=== PATIENT | female | born 1970 | race African-American/Black ===

== ENCOUNTER 2017-02-16 14:01 | Observation (INO) | payer MEDICAID ==
[~2017-02-16] VITALS: Ht 175.3 cm; Wt 100.0 kg
[~2017-02-16 14:01] MED LIST: IBUP-232 PO; LEVO100T5 PO; ZETI10TA5 PO
--- NOTE | 2017-02-16 14:10 | PD ---
Physical Exam Date Seen by Provider: Feb 16, 2017 Time Seen by Provider: 14:08 Narrative 46 yo female that presents to the ED for pressure on the left neck and chest with SOB, palpitations as well. Never has had this before. Going on since yesterday. Comes and goes. No cardiac history. Pain is 10/10. No BM or urinary symptoms. No radiation of the pain. No travel or injury. No ski topper. Vitals sign stable. Patient awaiting bed placement. [facility] Medical Record Reviewed: Yes Supervised Visit with AMY: Mario Hernandez Feb 16, 2017 14:10
[2017-02-16 14:34] LABS: AUTOMATED NEUTROPHIL # 12.2 TH/MM3 (1.8-7.7); BASOPHIL # 0.1 TH/MM3 (0-0.2); BASOPHIL % 0.4 % (0.0-2.0); EOSINOPHIL # 0.1 TH/MM3 (0-0.4); EOSINOPHIL % 0.5 % (0.0-4.0); HEMATOCRIT 40.2 % (35.0-46.0); HEMO FLAGS DIFF FINAL; LYMPH % 17.8 % (9.0-44.0); LYMPHOCYTE # 2.8 TH/MM3 (1.0-4.8); MEAN CELL VOLUME 88.9 FL (80.0-100.0); MEAN CORPUSCULAR HGB CONC 33.8 % (32.0-36.0); MONO % 4.1 % (0.0-8.0); NEUT % 77.2 % (16.0-70.0); PLATELET COUNT 295 TH/MM3 (150-450); RED BLOOD COUNT 4.52 MIL/MM3 (4.00-5.30); RED CELL DISTRIBUTION WIDTH 12.8 % (11.6-17.2); WHITE BLOOD COUNT 15.8 TH/MM3 (4.0-11.0)
[2017-02-16 14:42] LABS: APTT (PATIENT) 26.9 SEC (24.3-30.1); INTERNATIONAL NORMALIZED RATIO 0.9 RATIO; PROTHROMBIN TIME - PATIENT 10.3 SEC (9.8-11.6)
[2017-02-16 15:14] LABS: ANION GAP 9 MEQ/L (5-15); BICARBONATE 27.5 MEQ/L (21.0-32.0); BLOOD UREA NITROGEN 7 MG/DL (7-18); CHLORIDE 105 MEQ/L (98-107); GLOMERULAR FILTRATION RATE 91 ML/MIN (>89); MAGNESIUM 2.2 MG/DL (1.5-2.5); POTASSIUM 3.4 MEQ/L (3.5-5.1); SODIUM (NA) 141 MEQ/L (136-145)
--- NOTE | 2017-02-16 15:14 | PD ---
HPI Chief Complaint: Chest Pain Time Seen by Provider: 15:13 Travel History International Travel<30 days: No Contact w/Intl Traveler<30days: No Traveled to known affect area: No History of Present Illness HPI 46-year-old female with PMH of HLD, hypothyroid presents to the ED for evaluation of abrupt onset chest pain, palpitations and shortness of breath at ~ noon today. Onset at rest, described as intermittent. States pain radiates into the left neck and left arm. Patient denies accompanying diaphoresis, nausea or vomiting. States she is unsure how long the episode lasted. She denies headache, dizziness, cough, abdominal pain, dysuria, back pain, edema of the lower extremities. Patient endorses a 20+ year smoking history, quit smoking 2 years ago. Endorses family history, both parents with MIs. PFSH Past Medical History Cardiovascular Problems: Yes (ENLARGED HEART) Diminished Hearing: No Seizures: Yes (ABSENT - NON COMPLANT WITH HER TOPAMAX X 2 MONTHS ) : 4 Para: 2 Ectopic : Yes Tubal Ligation: Yes Social History Alcohol Use: No Tobacco Use: No Substance Use: No Allergies-Medications (Allergen,Severity, Reaction): Coded Allergies: No Known Allergies (Verified , 06/06/15) Reported Meds & Prescriptions Reported Meds & Active Scripts Active Ibuprofen 600 Mg Tab 600 Mg PO TID PRN Reported Levothyroxine (Levothyroxine Sodium) 100 Mcg Tab 100 Mcg PO DAILY Zetia (Ezetimibe) 10 Mg Tab 10 Mg PO DAILY Review of Systems Except as stated in HPI: all other systems reviewed are Neg Physical Exam Narrative GENERAL: Well-nourished, well-developed obese black female in no acute distress. SKIN: Focused skin assessment warm/dry. HEAD: Normocephalic. EYES: No scleral icterus. No injection or drainage. NECK: Supple, trachea midline. No JVD or lymphadenopathy. CARDIOVASCULAR: Regular rate and rhythm without murmurs, gallops, or rubs. RESPIRATORY: Breath sounds clear and equal bilaterally. No accessory muscle use. GASTROINTESTINAL: Abdomen soft, non-tender, nondistended. Active bowel sounds MUSCULOSKELETAL: No cyanosis, or edema. BACK: Nontender without obvious deformity. No CVA tenderness. Data Data Last Documented VS Vital Signs Date Time Temp Pulse Resp B/P Pulse Ox O2 Delivery O2 Flow Rate FiO2 02/16/17 15:42 74 20 112/56 99 Nasal Cannula 2 Orders Electrocardiogram (02/16/17 ) Electrocardiogram (02/16/17 14:10) Complete Blood Count With Diff (02/16/17 14:10) Basic Metabolic Panel (Bmp) (02/16/17 14:10) Ckmb (Isoenzyme) Profile (02/16/17 14:10) Troponin I (02/16/17 14:10) Magnesium (Mg) (02/16/17 14:10) Prothrombin Time / Inr (Pt) (02/16/17 14:22) Act Partial Throm Time (Ptt) (02/16/17 14:22) Chest, Single Ap (02/16/17 15:09) Ecg Monitoring (02/16/17 15:09) Bilateral Bp Monitoring (02/16/17 15:09) Iv Access Insert/Monitor (02/16/17 15:09) Oximetry (02/16/17 15:09) Urinalysis - C+S If Indicated (02/16/17 15:43) Admit Order (Ed Use Only) (02/16/17 17:28) Place In Observation (02/16/17 17:29) Activity Bed Rest With Brp (02/16/17 17:29) Vital Signs (Adult) Q4H (02/16/17 17:29) Cardiac Rhythm .As Directed (02/16/17 17:29) Notify Dr: Other .PRN (02/16/17 17:29) Notify Dr. Parameters (02/16/17 17:29) Resp Oxygen Nasal Cannula (02/16/17 ) Diet Heart Healthy (02/16/17 Dinner) Ckmb (Isoenzyme) Profile (02/16/17 17:29) Ckmb (Isoenzyme) Profile (02/16/17 20:29) Troponin I (02/16/17 17:29) Troponin I (02/16/17 20:29) Electrocardiogram (02/16/17 17:29) Electrocardiogram (02/16/17 20:29) ^ Obtain (02/16/17 17:29) Sodium Chloride 0.9% Flush (Ns Flush) (02/16/17 17:30) Sodium Chloride 0.9% Flush (Ns Flush) (02/16/17 21:00) Program Admin / Telemetry YONG.Q8H (02/16/17 17:29) Labs Laboratory Tests Test 02/16/17 02/16/17 14:15 16:50 White Blood Count 15.8 TH/MM3 Red Blood Count 4.52 MIL/MM3 Hemoglobin 13.6 GM/DL Hematocrit 40.2 % Mean Corpuscular Volume 88.9 FL Mean Corpuscular Hemoglobin 30.0 PG Mean Corpuscular Hemoglobin 33.8 % Concent Red Cell Distribution Width 12.8 % Platelet Count 295 TH/MM3 Mean Platelet Volume 9.0 FL Neutrophils (%) (Auto) 77.2 % Lymphocytes (%) (Auto) 17.8 % Monocytes (%) (Auto) 4.1 % Eosinophils (%) (Auto) 0.5 % Basophils (%) (Auto) 0.4 % Neutrophils # (Auto) 12.2 TH/MM3 Lymphocytes # (Auto) 2.8 TH/MM3 Monocytes # (Auto) 0.7 TH/MM3 Eosinophils # (Auto) 0.1 TH/MM3 Basophils # (Auto) 0.1 TH/MM3 CBC Comment DIFF FINAL Differential Comment Prothrombin Time 10.3 SEC Prothromb Time International 0.9 RATIO Ratio Activated Partial 26.9 SEC Thromboplast Time Sodium Level 141 MEQ/L Potassium Level 3.4 MEQ/L Chloride Level 105 MEQ/L Carbon Dioxide Level 27.5 MEQ/L Anion Gap 9 MEQ/L Blood Urea Nitrogen 7 MG/DL Creatinine 0.82 MG/DL Estimat Glomerular Filtration 91 ML/MIN Rate Random Glucose 137 MG/DL Calcium Level 9.0 MG/DL Magnesium Level 2.2 MG/DL Total Creatine Kinase 49 U/L Troponin I LESS THAN 0.02 NG/ML Urine Color YELLOW Urine Turbidity HAZY Urine pH 6.5 Urine Specific [place] 1.015 Urine Protein NEG mg/dL Urine Glucose (UA) NEG mg/dL Urine Ketones NEG mg/dL Urine Occult Blood NEG Urine Nitrite NEG Urine Bilirubin NEG Urine Urobilinogen LESS THAN 2.0 MG/DL Urine Leukocyte Esterase TRACE Urine WBC 1 /hpf Urine Squamous Epithelial 1 /hpf Cells Urine Amorphous Sediment RARE Urine Bacteria RARE /hpf Microscopic Urinalysis Comment CULT NOT INDICATED MDM Medical Decision Making Medical Screen Exam Complete: Yes Emergency Medical Condition: Yes Medical Record Reviewed: Yes Interpretation(s) EKG rate 91, sinus rhythm with PVCs. OR interval 155, QRS 95, QTC 370. No concerning ST changes. Reviewed by Dr. Puckett. Differential Diagnosis chest pain versus ACS versus anxiety versus PE versus Narrative Course 46-year-old female with PMH of HLD, hypothyroid presents to the ED for evaluation of abrupt onset chest pain, palpitations and shortness of breath at ~ noon today. Onset at rest, described as intermittent. States pain radiates into the left neck and left arm. Patient denies accompanying diaphoresis, nausea or vomiting. States she is unsure how long the episode lasted. She denies headache, dizziness, cough, abdominal pain, dysuria, back pain, edema of the lower extremities. Patient endorses a 20+ year smoking history, quit smoking 2 years ago. Endorses family history, both parents with MIs. Vitals reviewed. Physical exam reveals an obese, anxious black female in no acute distress. Chest is clear to auscultation bilaterally. Abdomen soft, nontender , active bowel sounds. No edema of the bilateral extremities. IV was established. Patient was placed on continuous monitoring. CBC: WBC 15.8. Hemoglobin 13.6 CMP: Potassium 3.4. UA: no culture indicated Coags: INR 0.9. Cardiac enzymes: Negative 1. Chest x-ray: No acute disease per radiology read. Unsure of the source of her leukocytosis, possible stress reaction. Per patient report and review of the record the patient has never had a cardiac workup. Given her symptoms I feel that admission to the chest pain center for serial cardiac enzymes and EKGs, possible stress testing is reasonable. I discussed this plan of care with the patient and her family and they are agreeable. Please see chest pain center notes for disposition. Zenobia Burgos Feb 16, 2017 15:14
[2017-02-16 15:27] LABS: CREATINE KINASE 49 U/L (26-192)
--- NOTE | 2017-02-16 15:38 | RADRPT ---
EXAM DATE/TIME: 02/16/2017 15:24 [facility] COMPARISON: No previous studies available for comparison. INDICATIONS : Shortness of breath. MEDICAL HISTORY : None. SURGICAL HISTORY : None. ENCOUNTER: Initial ACUITY: 2 days PAIN SCORE: 0/10 LOCATION: Bilateral chest FINDINGS: A single view of the chest demonstrates the lungs to be symmetrically aerated without evidence of mas s, infiltrate or effusion. The cardiomediastinal contours are unremarkable. Osseous structures are intact. CONCLUSION: No acute disease. David Harrington MD FACR on February 16, 2017 at 15:36 Board Certified Radiologist. This report was verified electronically.
[2017-02-16 15:42] VITALS: BP 112/56; PULSE 74; RESP 20; O2SAT 99
[2017-02-16 17:00] VITALS: BP 121/68; PULSE 78; RESP 20; O2SAT 99
[2017-02-16 17:21] LABS: BACTERIA, URINE RARE /hpf; BLOOD, URINE NEG (NEG); COMMENT (UR) CULT NOT INDICATED; CULTURE IF INDICATED CULT NOT INDICATED; GLUCOSE,URINE NEG (NEG); KETONE, URINE NEG (NEG); NITRITE,URINE NEG (NEG); PH, URINE 6.5 (5.0-8.5); SQUAMOUS EPITHELIAL CELL URINE 1 /hpf (0-5); URINE COLOR YELLOW (YELLW/STRAW)
[2017-02-16] MEDS ORDERED: SODIUM CHLORIDE 0.9% FLUSH 10 ML FLUSH IV FLUSH PRN (17:30)
[2017-02-16 20:03] LABS: CREATINE KINASE 42 U/L (26-192)
[2017-02-16 21:22] VITALS: BP 132/84; PULSE 89; RESP 20; TEMP 98.2
[2017-02-16 21:27] LABS: CREATINE KINASE 32 U/L (26-192)
[2017-02-16 22:54] VITALS: BP 124/61; PULSE 73; RESP 20; TEMP 98.7; O2SAT 100
[2017-02-16] MEDS: SODIUM CHLORIDE 0.9% FLUSH 10 ML FLUSH IV FLUSH SCH (23:46)
[2017-02-17 04:00] VITALS: BP 116/58; PULSE 68; RESP 20; TEMP 97.8; O2SAT 100
[2017-02-17 04:14] VITALS: PULSE 66
[2017-02-17 08:35] VITALS: BP 107/69; PULSE 63; RESP 18; TEMP 97.2; O2SAT 100
[2017-02-17] MEDS: SODIUM CHLORIDE 0.9% FLUSH 10 ML FLUSH IV FLUSH SCH (09:00)
[2017-02-17] MEDS ORDERED: POTA10TA8 PO (09:28)
[2017-02-17] MEDS ORDERED: FURO40TA PO (09:28)
[2017-02-17] MEDS ORDERED: EZETIMIBE 10 MG TAB PO SCH (09:30)
[2017-02-17] MEDS ORDERED: POTASSIUM CHLORIDE 10 MEQ CAP PO ONE (09:30)
[2017-02-17] MEDS ORDERED: FUROSEMIDE 40 MG TAB PO SCH (09:30)
[2017-02-17] MEDS ORDERED: LEVOTHYROXINE SODIUM 100 MCG TAB PO SCH (10:00)
--- NOTE | 2017-02-17 10:40 | HHI.HP ---
[facility] Primary Care Physician Baldomero Natarajan Chief Complaint Chest pain History of Present Illness This is a 46-year-old female that presents to ED via private vehicle to evaluate shortness breath and chest discomfort and with subsequent limited to the chest pain center for further evaluation. She states that she woke up around 11:00 yesterday morning and felt short of breath. She also developed a tightness in the left side her neck. To left upper chest that lasted about 6 hours. She felt nauseous and flushed. No inspirational chest discomfort. Denies coughing. Denies any recent illnesses. Denies history of coronary disease but states she was told by cuff presser 6 or 7 years ago that she had an enlarged heart. She had a stress test that time and doesn't know the results but states no follow-up stress testing or heart catheterizations were performed afterwards. She found nothing to worsen or improve her symptoms when she had them. Review of Systems General: Patient denies fevers, chills recent, and recent travel HEENT: Patient denies headache, sore throat, difficulty swallowing. Cardiovascular: Has the chest discomfort as mentioned above. She also had palpitations rate No syncope. Respiratory: Denies shortness of breath or inspirational chest discomfort. Denies coughing wheezing or hemoptysis. GI: She felt nauseous. Patient denies vomiting, diarrhea, abdominal pain, bloody stools. Musculoskeletal: Patient denies joint pain or edema. Denies calf pain or edema. Neurovascular: Patient denies numbness, tingling, weakness in extremities. Denies headache. Endocrine: Denies polyuria and polydipsia. Hematologic: Denies easy bruising. Skin: Denies rash or itching. Past Family Social History Allergies: Coded Allergies: No Known Allergies (Verified , 06/06/15) Past Medical History Hyperlipidemia, hypothyroidism, seizure disorder but states she's been noncompliant with her medications for several months. States her last seizure was over a year ago. Denies hypertension diabetes and CAD. Past Surgical History Tubal ligation. Reported Medications Reported Meds & Active Scripts Active Reported Potassium Chloride CR (Potassium Chloride) 10 Meq Tab 10 Meq PO DAILY Furosemide 40 Mg Tab 40 Mg PO DAILY Levothyroxine (Levothyroxine Sodium) 100 Mcg Tab 100 Mcg PO DAILY Zetia (Ezetimibe) 10 Mg Tab 10 Mg PO DAILY Active Ordered Medications Current Medications Medications (Trade) Dose Ordered Sig/Ryan Route Start Time Stop Time Status Last Admin (NS Flush) 2 ml UNSCH PRN IV FLUSH 02/16/17 17:30 (NS Flush) 2 ml BID IV FLUSH 02/16/17 21:00 02/16/17 23:46 (Zetia) 10 mg DAILY PO 02/17/17 09:30 (Lasix) 40 mg DAILY PO 02/17/17 09:30 (Synthroid) 100 mcg DAILY PO 02/17/17 10:00 (KCl) 10 meq DAILY PO 02/17/17 11:00 Family History Her mother had an NV at age 36 but states she's never had stenting or bypass and is currently age 76. Her father at age 82 and had congestive heart failure. She has a sister that age 36 of congestive heart failure. Social History Patient quit smoking almost 2 years ago. Prior that she smoked 1/2-2 packs cigarettes daily for 26 years. She denies alcohol or illicit drugs. Physical Exam Vital Signs Vital Signs Date Time Temp Pulse Resp B/P Pulse Ox O2 Delivery O2 Flow Rate FiO2 02/17/17 08:35 97.2 63 18 107/69 100 02/17/17 04:14 66 02/17/17 04:00 97.8 68 20 116/58 100 02/16/17 22:54 98.7 73 20 124/61 100 02/16/17 21:22 98.2 89 20 132/84 02/16/17 17:40 Nasal Cannula 2.00 02/16/17 17:00 78 20 121/68 99 Nasal Cannula 2 02/16/17 15:42 74 20 112/56 99 Nasal Cannula 2 02/16/17 15:36 99 Nasal Cannula 2 02/16/17 15:34 Physical Exam GENERAL: This is a well-nourished, well-developed patient, in no apparent distress. Patient speaks in clear complete sentences. Patient is pleasant. HEENT: Head is atraumatic and normocephalic. Neck is supple without lymphadenopathy and trachea is midline. No JVD or carotid bruits. CARDIOVASCULAR: Regular rate and rhythm without murmurs, gallops, or rubs. RESPIRATORY: Clear to auscultation. Breath sounds equal bilaterally. No wheezes , rales, or rhonchi. Chest wall is nontender. No use of accessory muscles. GASTROINTESTINAL: Abdomen is nontender, nondistended. Abdomen soft. No obvious pulsatile mass or bruit. No CVA tenderness. Strong femoral pulses bilaterally. Normal bowel sounds in all quadrants. MUSCULOSKELETAL: Patient is moving upper and lower extremities freely. No calf tenderness or edema, no Homans sign. Strong pulses in upper and lower extremities. NEUROLOGICAL: Patient is alert and oriented. Cranial nerves 2-12 are grossly intact. No focal deficits and speech is clear. SKIN: No rash and turgor is normal. Laboratory Laboratory Tests Test 02/16/17 02/16/17 02/16/17 02/16/17 14:15 16:50 18:25 20:45 White Blood Count 15.8 Red Blood Count 4.52 Hemoglobin 13.6 Hematocrit 40.2 Mean Corpuscular Volume 88.9 Mean Corpuscular Hemoglobin 30.0 Mean Corpuscular Hemoglobin 33.8 Concent Red Cell Distribution Width 12.8 Platelet Count 295 Mean Platelet Volume 9.0 Neutrophils (%) (Auto) 77.2 Lymphocytes (%) (Auto) 17.8 Monocytes (%) (Auto) 4.1 Eosinophils (%) (Auto) 0.5 Basophils (%) (Auto) 0.4 Neutrophils # (Auto) 12.2 Lymphocytes # (Auto) 2.8 Monocytes # (Auto) 0.7 Eosinophils # (Auto) 0.1 Basophils # (Auto) 0.1 CBC Comment DIFF FINAL Differential Comment Prothrombin Time 10.3 Prothromb Time International 0.9 Ratio Activated Partial 26.9 Thromboplast Time Sodium Level 141 Potassium Level 3.4 Chloride Level 105 Carbon Dioxide Level 27.5 Anion Gap 9 Blood Urea Nitrogen 7 Creatinine 0.82 Estimat Glomerular Filtration 91 Rate Random Glucose 137 Calcium Level 9.0 Magnesium Level 2.2 Total Creatine Kinase 49 42 32 Troponin I LESS THAN 0.02 LESS THAN 0.02 LESS THAN 0.02 Urine Color YELLOW Urine Turbidity HAZY Urine pH 6.5 Urine Specific [place] 1.015 Urine Protein NEG Urine Glucose (UA) NEG Urine Ketones NEG Urine Occult Blood NEG Urine Nitrite NEG Urine Bilirubin NEG Urine Urobilinogen LESS THAN 2.0 Urine Leukocyte Esterase TRACE Urine WBC 1 Urine Squamous Epithelial 1 Cells Urine Amorphous Sediment RARE Urine Bacteria RARE Microscopic Urinalysis Comment CULT NOT INDICATED Result Diagram: 02/16/17 1415 02/16/17 1415 Imaging Last 24 hours Impressions Chest X-Ray 02/16/17 1509 Signed Impressions: Service Date/Time: Thursday, February 16, 2017 15:24 - CONCLUSION: No acute disease. David Harrington MD FACR Course EKGs have been sinus rhythm with sinus bradycardia. There are PVCs. There are nonspecific T-wave changes. Assessment and Plan Assessment and Plan * Chest pain: Patient presented to the ED complaining of chest pain, shortness of breath, palpitations. She's had serial cardiac enzymes and EKGs for ruling out purposes and will undergo a stress test. She'll be seen by Dr. Roy in the chest pain center. She likely be discharged home if her stress test is nonischemic. * Hypothyroidism: Continue current medication. We'll get a TSH. * Hyperlipidemia: Continue current medication. * Hypokalemia: Patient was given potassium supplementation. Patient is stable time. She is agreeable to this plan. [place] Feb 17, 2017 10:40
[2017-02-17] MEDS ORDERED: POTASSIUM CHLORIDE 10 MEQ CONTROLLED RELEASE TAB PO SCH (11:00)
[2017-02-17] MEDS ORDERED: REGADENOSON INJ 0.4 MG/5 ML SYR ONE (12:14)
--- NOTE | 2017-02-17 13:05 | EKG ---
Date Performed: 02/16/2017 Time Performed: 14:14:34 PTAGE: 46 years EKG: Sinus rhythm WITH FREQUENT VENTRICULAR PREMATURE COMPLEXES POOR PRECORDIAL R-WAVE PROGRESSION ABNORMAL RHYTHM ECG PREVIOUS TRACING : 01/26/2012 21.57 DOCTOR: Kvng Roy Interpretating Date/Time 02/17/2017 13:04:30
--- NOTE | 2017-02-17 13:13 | EKG ---
Date Performed: 02/16/2017 Time Performed: 20:39:08 PTAGE: 46 years EKG: Sinus rhythm MODERATE T-WAVE ABNORMALITY, CONSIDER ANTEROLATERAL ISCHEMIA ABNORMAL ECG PREVIOUS TRACING : 02/16/2017 14.14 DOCTOR: Kvng Roy Interpretating Date/Time 02/17/2017 13:11:58
--- NOTE | 2017-02-17 13:14 | EKG ---
Date Performed: 02/17/2017 Time Performed: 00:13:40 PTAGE: 46 years EKG: SINUS BRADYCARDIA MODERATE T-WAVE ABNORMALITY, CONSIDER ANTERIOR ISCHEMIA ABNORMAL ECG INTE RPRETATION BASED ON A DEFAULT AGE OF 40 YEARS PREVIOUS TRACING : 02/16/2017 20.39 DOCTOR: Kvng oRy Interpretating Date/Time 02/17/2017 13:13:28
--- NOTE | 2017-02-17 13:29 | RADRPT ---
EXAM DATE/TIME: 02/17/2017 11:48 [facility] COMPARISON: No previous studies available for comparison. INDICATIONS : Left chest pain. Angina. DOSE: 35 mCi Tc99m Myoview at stress. 10.9 mCi Tc99m Myoview at rest. 0.4 mg Lexiscan STRESS SYMPTOMS: Neck tightness and shortness of breath. EJECTION FRACTION: > 70% MEDICAL HISTORY : Hypertension. SURGICAL HISTORY : Tubal ligation. ENCOUNTER: Initial ACUITY: 1 day PAIN SCALE: 3/10 LOCATION: Left chest TECHNIQUE: The patient underwent pharmacologic stress with infusion of prescribed dose. Continuous ECG tracing was monitored during stress. Gated SPECT imaging was performed after stress and conventional SPECT i maging was performed at rest. The examination was performed on a SPECT/CT scanner, both attenuation and non-corrected datasets were reviewed. FINDINGS: DISTRIBUTION: The maximum perfused segment at stress is in the anteroseptal wall. PERFUSION STUDY: The pattern of perfusion at stress is within normal limits. GATED STUDY: There is intact wall motion and thickening without hypokinetic or dyskinetic segments. CONCLUSION: 1. No definite reversible perfusion defects are identified to suggest stress-induced myocardial ische torri. RISK CATEGORY: Low (<1% Annual Mortality Rate) Lorenzo German MD on February 17, 2017 at 13:27 Board Certified Radiologist. This report was verified electronically.
--- NOTE | 2017-02-17 13:38 | TR ---
Date Performed: 02/17/2017 Time Performed: 12:32:56 DOCTOR: Kvng Roy DRUG LIST: CLINICAL HISTORY: CHE REASON FOR TEST: REASON FOR ENDING: OBSERVATION: CONCLUSION: Lexiscan stress test was performed under standard four minute protocol. Radionuclide was injected one minute prior to ending the test. The patient was asymptomatic. No electrocardiograp hic abnormalities were present to suggest ischemia. Recovery was quick and uneventful. Nuclear imagin g and interpretation are pending. COMMENTS:
[2017-02-17 14:00] VITALS: PULSE 63
[2017-02-17] MEDS ORDERED: MICR10CA PO (16:10)
--- NOTE | 2017-02-17 16:10 | HHI.DCPOC ---
Discharge Care Plan Diagnosis: (1) Chest pain (2) Hypothyroidism (3) Hyperlipidemia Goals to Promote Your Health * To prevent worsening of your condition and complications * To maintain your health at the optimal level Directions to Meet Your Goals Take your medications as prescribed Follow your dietary instruction Follow activity as directed Keep your appointments as scheduled Take your immunizations and boosters as scheduled If your symptoms worsen call your PCP, if no PCP go to Urgent Care Center or Emergency Room Smoking is Dangerous to Your Health. Avoid second hand smoke Call the 24-hour hour crisis hotline for domestic abuse at [place] Feb 17, 2017 16:10
== END 2017-02-17 17:56 | disposition home or self-care (01) ==
LOC: NEPC 14:01 → NEDA 17:30 → NEPFCDU 22:03
PROVIDERS: ADMIT Internal Medicine Cardiovascular Disease; ATTEND Internal Medicine Cardiovascular Disease
DX: R07.9 Chest pain, unspecified (principal); E03.9 Hypothyroidism, unspecified; E78.5 Hyperlipidemia, unspecified; E87.6 Hypokalemia; E66.9 Obesity, unspecified; Z68.32 Body mass index [BMI] 32.0-32.9, adult; Z87.891 Personal history of nicotine dependence; Z82.49 Family history of ischemic heart disease and other diseases of the circulatory system; Z91.14 Patient's other noncompliance with medication regimen
CPT/HCPCS: 71010; 78452; 80048; 81001; 82550; 83735; 84443; 84484; 85025; 85610; 85730; 93005; 93017; 99285; A9502; G0378; J2785

== ENCOUNTER 2017-10-02 17:17 | Emergency (ER) | payer SELFPAY ==
[~2017-10-02 17:17] MED LIST changes: +EZET10 PO; +FURO40TA PO; -IBUP-232 PO; +MICR10CA PO; -ZETI10TA5 PO
[2017-10-02 17:18] VITALS: BP 143/74; PULSE 80; RESP 15; TEMP 99; O2SAT 100
--- NOTE | 2017-10-02 17:44 | RADRPT ---
EXAM DATE/TIME: 10/02/2017 17:32 [facility] COMPARISON: KNEE RIGHT COMPLETE (4VWS), September 27, 2016, 19:28. INDICATIONS : Right knee pain with no known injury. MEDICAL HISTORY : None. SURGICAL HISTORY : None. ENCOUNTER: Initial ACUITY: 3 days PAIN SCORE: 9/10 LOCATION: Right entire knee. FINDINGS: Four view examination of the right knee demonstrates no evidence of fracture or dislocation. Bony mi neralization is normal. The articular surfaces are intact. The suprapatellar soft tissues have a no rmal configuration. CONCLUSION: No acute disease. Alex Sandra MD on October 02, 2017 at 17:42 Board Certified Radiologist. This report was verified electronically.
[2017-10-02] MEDS ORDERED: IBUPROFEN 800 MG TAB PO ONE (18:45)
--- NOTE | 2017-10-02 18:48 | PD ---
HPI Chief Complaint: Musculoskeletal Complaint Time Seen by Provider: 18:27 Travel History International Travel<30 days: No Contact w/Intl Traveler<30days: No Traveled to known affect area: No History of Present Illness HPI 46-year-old female presents to the ED for evaluation of 4 day history of 9/10 right-sided knee pain. Gradual onset. Worsened by motion, weightbearing. The patient states the pain comes from the back of the knee and radiates around. She states that the pain is worsened when the leg is extended. She denies any alleviating factors. She denies numbness, tingling, weakness, limitations to range of motion of the extremity. She denies oral contraception use, cigarette smoking, history of DVT, recent period of immobilization, known injury to the area. She treated at home with 800 mg of ibuprofen with no improvement of her symptoms. PFSH Past Medical History Heart Rhythm Problems: Yes Cardiac Catheterization: No Cardiovascular Problems: Yes High Cholesterol: No Congestive Heart Failure: No Diabetes: No Diminished Hearing: No Seizures: Yes (ABSENT - NON COMPLANT WITH HER TOPAMAX X 2 MONTHS ) Thyroid Disease: Yes (on med) ?: Not LMP: 09/19/17 : 4 Para: 2 Ectopic : Yes (1993, (R)) Tubal Ligation: Yes Past Surgical History Coronary Artery Bypass Graft: No Social History Alcohol Use: No Tobacco Use: No Substance Use: No Allergies-Medications (Allergen,Severity, Reaction): Coded Allergies: No Known Allergies (Verified , 06/06/15) Reported Meds & Prescriptions Reported Meds & Active Scripts Active Ibuprofen 800 Mg Tab 800 Mg PO Q8H PRN Micro-K (Potassium Chloride) 10 Meq Cap 10 Meq PO BID Reported Furosemide 40 Mg Tab 40 Mg PO DAILY Levothyroxine (Levothyroxine Sodium) 100 Mcg Tab 100 Mcg PO DAILY Zetia (Ezetimibe) 10 Mg Tab 10 Mg PO DAILY Review of Systems Except as stated in HPI: all other systems reviewed are Neg Physical Exam Narrative GENERAL: Well-nourished, well-developed nontoxic-appearing black female in no acute distress. Chatting on the phone on my arrival to the room. SKIN: Focused skin assessment warm/dry. HEAD: Normocephalic. EYES: No scleral icterus. No injection or drainage. NECK: Supple, trachea midline. No JVD or lymphadenopathy. CARDIOVASCULAR: Regular rate and rhythm without murmurs, gallops, or rubs. RESPIRATORY: Breath sounds equal bilaterally. No accessory muscle use. GASTROINTESTINAL: Abdomen soft, non-tender, nondistended. MUSCULOSKELETAL: No cyanosis, or edema. FOCUSED RIGHT LOWER EXTREMITY EXAM: 2+ DP pulse. Patient is able to flex the ankle and the toes without difficulty. Tenderness to palpation in the popliteal area. Mild tenderness to palpation in the patellar area. Strength 5/ 5. Leg extends to 0 and flexes beyond 90. Flexion elicits pain. Negative Homans sign. No patellar balloting. Negative varus/valgus stress testing. Neurovascularly intact. BACK: Nontender without obvious deformity. No CVA tenderness. Data Data Last Documented VS Vital Signs Date Time Temp Pulse Resp B/P (MAP) Pulse Ox O2 Delivery O2 Flow Rate FiO2 10/02/17 17:18 99.0 80 15 143/74 (97) 100 Orders Orders Knee, Complete (4vws) (10/02/17 ) Us Leg Venous Doppler (10/02/17 18:43) Ibuprofen (Motrin) (10/02/17 18:45) Ice/Cold Pack (10/02/17 18:43) Ed Discharge Order (10/02/17 20:54) [facility] Medical Decision Making Medical Screen Exam Complete: Yes Emergency Medical Condition: Yes Differential Diagnosis Osteoarthritis versus internal derangement versus Grubbs cyst versus DVT versus other Narrative Course 46-year-old female presents to the ED for evaluation of 4 day history of 9/10 right-sided knee pain. Gradual onset. Worsened by motion, weightbearing. The patient states the pain comes from the back of the knee and radiates around. She states that the pain is worsened when the leg is extended. She denies any alleviating factors. She denies numbness, tingling, weakness, limitations to range of motion of the extremity. She denies oral contraception use, cigarette smoking, history of DVT, recent period of immobilization, known injury to the area. Vitals reviewed. On exam the patient has tenderness over the anterior knee but greater in the popliteal region. No patellar balloting. No limitation to range of motion. She is administered 100 mg of ibuprofen. X-ray is unremarkable. Ultrasound reveals no evidence of DVT. I also don't see any evidence of osteoarthritis. I'm unsure of the source of this patient's pain. Could be soft tissue damage secondary to injury with the patient denies this. She is prescribed a short course of anti-inflammatories and instructed to rest, ice, compress and elevate the extremity, follow up with the orthopedist. She indicated understanding of the instructions. She is agreeable with the care plan. She is stable and discharged home. Diagnosis Primary Impression: Knee pain, acute Qualified Codes: M25.561 - Pain in right knee Referrals: Orthopedist Patient Instructions: General Instructions, Knee Pain (ED) Additional Instructions: Rest, ice, elevate the extremity. Apply ice no longer than 10-15 minutes per hour a few times a day. 800 mg ibuprofen up to 3 times a day as needed for pain. Return to normal, gentle activity as tolerated. No running, jumping activities for the next few weeks. Follow up with orthopedist or your primary care provider. Return to the ED for any urgent or emergent medical condition. Med/Other Pt SpecificInfo: Prescription(s) given Scripts Ibuprofen (Ibuprofen) 800 Mg Tab 800 MG PO Q8H Y for Pain/Inflammation, #15 TAB 0 Refills Prov: Kris Scott MD 10/02/17 Disposition: DISCHARGE HOME Condition: Stable Zenobia Burgos Oct 02, 2017 18:48
--- NOTE | 2017-10-02 19:51 | RADRPT ---
EXAM DATE/TIME: 10/02/2017 19:18 [facility] COMPARISON: No previous studies available for comparison. INDICATIONS : Right leg pain. MEDICAL HISTORY : Hypertension. . Seizures. Thyroid disease. Irregular heartbeat. Ectopic . SURGICAL HISTORY : Tubal ligation. ENCOUNTER: Initial ACUITY: 4 - 6 days PAIN SCORE: 4/10 LOCATION: Right leg. TECHNIQUE: Venous ultrasound of the leg was performed from the inguinal ligament to the proximal calf. Real-elliott e, color Doppler and spectral tracing, compression and augmentation techniques were used. FINDINGS: There is normal compressibility of the deep venous system from the inguinal region to the proximal ca lf. No echogenic clot is seen in the lumen of the common femoral, femoral, popliteal, and posterior tibial veins. There is a normal response of the venous system to proximal and distal augmentation an d respiration. CONCLUSION: Normal examination. Taran Guevara MD on October 02, 2017 at 19:48 Board Certified Radiologist. This report was verified electronically.
[2017-10-02] MEDS ORDERED: IBUP1TAB7 PO (20:54)
== END 2017-10-02 21:00 | disposition home or self-care (01) ==
LOC: NEPK 17:17 → NEPD 21:00
DX: M25.561 Pain in right knee (principal); M79.604 Pain in right leg; E07.9 Disorder of thyroid, unspecified; R56.9 Unspecified convulsions; Z79.899 Other long term (current) drug therapy
CPT/HCPCS: 73564; 93971; 99284